=== PATIENT | female | born 1960 | race Caucasian/White ===

== ENCOUNTER 2016-05-31 05:22 | Emergency (ER) | payer BC ==
[~2016-05-31] VITALS: Ht 167.6 cm; Wt 99.8 kg
[~2016-05-31 05:22] MED LIST: CALCIUM200 MG PO; MELATONIN3 MG PO; METFORMIN500 MG PO; PHENTERMINE15 MG PO; SUDAFED30 MG PO; VITAMINS
[2016-05-31 05:25] VITALS: BP 120/73; TEMP 97.9
[2016-05-31 06:09] LABS: HEMATOCRIT 44.9 % (37.0-47.0); HEMOGLOBIN 14.5 g/dl (12.5-16.0); MEAN CELL VOLUME 91 fl (80.0-100.0); MEAN CORPUSCULAR HEMOGLOBIN 29 pg (27.0-31.0); MEAN CORPUSCULAR HGB CONC 32 g/dl (33.0-37.0); MEAN PLATELET VOLUME 9.4 fl (7.4-10.4); PLATELET COUNT 181 K/mm3 (130-400); RED BLOOD COUNT 4.94 M/mm3 (4.10-5.30); REDCELL DISTRIBUTION WIDTH-CV 14.6 % (11.5-14.5)
[2016-05-31 06:13] LABS: ADD PATHOLOGY DIFF REVIEW NO
[2016-05-31] MEDS ORDERED: CELEXA40 MG PO (06:24)
[2016-05-31] MEDS ORDERED: MULTIPLE VITAMI1 CAP PO (06:25)
[2016-05-31] MEDS ORDERED: CHROMIUM PICO200 MC2 PO (06:25)
[2016-05-31] MEDS ORDERED: BASE, PCCA POLY1 FLA (06:26)
[2016-05-31 06:47] LABS: ALBUMIN 3.9 gm/dL (3.5-5.0); BILIRUBIN,TOTAL 0.7 mg/dL (0.0-1.0); CALCIUM 7.9 mg/dL (8.4-10.2); CREATININE, serum 0.7 mg/dL (0.52-1.25); POTASSIUM 3.2 mmol/L (3.4-5.0); TOTAL PROTEIN 7.3 gm/dL (6.4-8.2)
[2016-05-31] MEDS ORDERED: LOMOTIL 0.025 M1 TAB PO (06:57)
[2016-05-31 08:13] VITALS: PULSE 86
[2016-05-31 09:21] LABS: BAND 18 % (0-10); EOSINOPHIL 3 % (0-4); NEUTROPHILS 64 % (42.0-75.2); TOTAL CELLS COUNTED 100
[2016-05-31 09:22] LABS: PLATELET ESTIMATE NORMAL (NORMAL)
== END 2016-05-31 08:14 | disposition home or self-care (01) ==
LOC: COL.ER 05:22
PROVIDERS: Emergency Medicine
DX: K52.9 Noninfective gastroenteritis and colitis, unspecified (principal); E11.9 Type 2 diabetes mellitus without complications; Z79.84 Long term (current) use of oral hypoglycemic drugs
CPT/HCPCS: J2765; J3010; J7030; J7120

== ENCOUNTER → 2016-12-15 | Outpatient (CLI) | payer BC ==
[~2016-12-15] MED LIST changes: +BASE, PCCA POLY1 FLA; +CELEXA40 MG PO; +CHROMIUM PICO200 MC2 PO; +LOMOTIL 0.025 M1 TAB PO; +MULTIPLE VITAMI1 CAP PO
== END ==
LOC: MC.RAD 16:00
DX: Z12.31 Encounter for screening mammogram for malignant neoplasm of breast (principal)

== ENCOUNTER → 2017-03-16 | Outpatient (CLI) | payer BC ==
[~2017-03-16] VITALS: Ht 168.9 cm; Wt 108.2 kg
[~2017-03-16] MED LIST changes: +CALCIUM CITRATE1 TA4 PO; -CALCIUM200 MG PO; +CELEXA 20MG20 MG/TAB PO; -CELEXA40 MG PO; +GLUCOPHAGE XR500 M1 PO; -METFORMIN500 MG PO; +MINOCIN 50M50 MG/CAP PO; +TROCHE BASE1 PEL SL
[2017-03-16 09:32] VITALS: BP 116/70; PULSE 60
== END ==
LOC: LIGHT 08:22
DX: E28.2 Polycystic ovarian syndrome (principal); E16.1 Other hypoglycemia; E66.9 Obesity, unspecified; Z68.37 Body mass index [BMI] 37.0-37.9, adult; Z71.3 Dietary counseling and surveillance; E78.5 Hyperlipidemia, unspecified
CPT/HCPCS: G0463

== ENCOUNTER → 2017-03-16 | Outpatient (CLI) | payer BC | LOC: BHSO 11:11 | DX: Z01.818 Encounter for other preprocedural examination (principal) ==

== ENCOUNTER → 2017-04-03 | Outpatient (CLI) | payer BC | LOC: LIGHT 14:26 | DX: Z01.89 Encounter for other specified special examinations (principal) ==

== ENCOUNTER → 2017-04-13 | Outpatient (CLI) | payer BC ==
[~2017-04-13] VITALS: Ht 168.9 cm; Wt 107.0 kg
[2017-04-13 16:24] VITALS: BP 110/60; PULSE 76
== END ==
LOC: LIGHT 11:39
DX: E28.2 Polycystic ovarian syndrome (principal); E16.1 Other hypoglycemia; E78.5 Hyperlipidemia, unspecified; Z68.37 Body mass index [BMI] 37.0-37.9, adult; Z71.3 Dietary counseling and surveillance
CPT/HCPCS: G0463

== ENCOUNTER → 2017-05-18 | Outpatient (CLI) | payer BC ==
[~2017-05-18] VITALS: Ht 168.9 cm; Wt 102.5 kg
[2017-05-18 16:14] VITALS: BP 100/60; PULSE 76
== END ==
LOC: LIGHT 09:52
DX: E28.2 Polycystic ovarian syndrome (principal); E16.1 Other hypoglycemia; E78.5 Hyperlipidemia, unspecified; Z68.35 Body mass index [BMI] 35.0-35.9, adult; Z71.3 Dietary counseling and surveillance
CPT/HCPCS: G0463

== ENCOUNTER → 2017-06-22 | Outpatient (CLI) | payer BC ==
[~2017-06-22] VITALS: Ht 168.9 cm; Wt 100.5 kg
[2017-06-22 16:17] VITALS: BP 104/58; PULSE 76
== END ==
LOC: LIGHT 09:35
DX: E28.2 Polycystic ovarian syndrome (principal); E16.1 Other hypoglycemia; E78.5 Hyperlipidemia, unspecified; Z68.35 Body mass index [BMI] 35.0-35.9, adult; Z71.3 Dietary counseling and surveillance
CPT/HCPCS: G0463

== ENCOUNTER → 2017-07-13 | Outpatient (CLI) | payer BC ==
[~2017-07-13] VITALS: Ht 168.9 cm; Wt 100.2 kg
[~2017-07-13] MED LIST changes: +FASTIN30 MG PO
[2017-07-13 17:05] VITALS: BP 100/80; PULSE 60
== END ==
LOC: LIGHT 14:17
DX: E28.2 Polycystic ovarian syndrome (principal); E16.1 Other hypoglycemia; E78.5 Hyperlipidemia, unspecified; Z68.35 Body mass index [BMI] 35.0-35.9, adult; Z71.3 Dietary counseling and surveillance
CPT/HCPCS: G0463

== ENCOUNTER → 2017-08-17 | Outpatient (CLI) | payer BC ==
[~2017-08-17] VITALS: Ht 168.9 cm; Wt 96.8 kg
[2017-08-17 10:58] VITALS: BP 96/66; PULSE 88
== END ==
LOC: LIGHT 10:42
DX: E28.2 Polycystic ovarian syndrome (principal); E16.1 Other hypoglycemia; E78.5 Hyperlipidemia, unspecified; Z68.33 Body mass index [BMI] 33.0-33.9, adult; Z71.3 Dietary counseling and surveillance
CPT/HCPCS: G0463

== ENCOUNTER → 2017-09-21 | Outpatient (CLI) | payer BC ==
[~2017-09-21] VITALS: Ht 168.9 cm; Wt 97.3 kg
== END ==
LOC: LIGHT 10:43
DX: E28.2 Polycystic ovarian syndrome (principal); E16.1 Other hypoglycemia; E78.5 Hyperlipidemia, unspecified
CPT/HCPCS: G0463

== ENCOUNTER → 2017-10-19 | Outpatient (CLI) | payer BC ==
[~2017-10-19] VITALS: Ht 168.9 cm; Wt 97.1 kg
[2017-10-19 11:15] VITALS: BP 104/70; PULSE 88
== END ==
LOC: LIGHT 10:58
DX: E28.2 Polycystic ovarian syndrome (principal); E16.1 Other hypoglycemia; E78.5 Hyperlipidemia, unspecified; Z68.34 Body mass index [BMI] 34.0-34.9, adult; Z71.3 Dietary counseling and surveillance
CPT/HCPCS: G0463

== ENCOUNTER → 2017-11-30 | Outpatient (CLI) | payer BC ==
[~2017-11-30] VITALS: Ht 168.9 cm; Wt 96.6 kg
[2017-11-30 16:21] VITALS: BP 110/70; PULSE 64
== END ==
LOC: LIGHT 14:12
DX: E28.2 Polycystic ovarian syndrome (principal); E16.8 Other specified disorders of pancreatic internal secretion; E78.5 Hyperlipidemia, unspecified; E66.9 Obesity, unspecified; Z68.33 Body mass index [BMI] 33.0-33.9, adult; Z71.3 Dietary counseling and surveillance
CPT/HCPCS: G0463

== ENCOUNTER → 2018-01-11 | Outpatient (CLI) | payer BC ==
[~2018-01-11] VITALS: Ht 168.9 cm; Wt 95.5 kg
[~2018-01-11] MED LIST changes: +ADIPEX-P37.5 MG PO; -FASTIN30 MG PO
[2018-01-11 14:45] VITALS: BP 106/74; PULSE 72
== END ==
LOC: LIGHT 11:01
DX: E28.2 Polycystic ovarian syndrome (principal); E16.9 Disorder of pancreatic internal secretion, unspecified; E78.5 Hyperlipidemia, unspecified; E66.9 Obesity, unspecified; Z68.33 Body mass index [BMI] 33.0-33.9, adult; Z71.3 Dietary counseling and surveillance
CPT/HCPCS: G0463

== ENCOUNTER → 2018-01-16 | Outpatient (CLI) | payer BC | LOC: MC.RAD 01-04 14:20 | DX: Z12.31 Encounter for screening mammogram for malignant neoplasm of breast (principal); Z98.890 Other specified postprocedural states ==

== ENCOUNTER → 2018-03-08 | Outpatient (CLI) | payer BC ==
[~2018-03-08] VITALS: Ht 168.9 cm; Wt 93.4 kg
[2018-03-08 16:48] VITALS: BP 106/80; PULSE 76
== END ==
LOC: LIGHT 11:17
DX: E28.2 Polycystic ovarian syndrome (principal); E16.9 Disorder of pancreatic internal secretion, unspecified; E78.5 Hyperlipidemia, unspecified; Z68.32 Body mass index [BMI] 32.0-32.9, adult; Z71.3 Dietary counseling and surveillance
CPT/HCPCS: G0463

== ENCOUNTER → 2018-05-10 | Outpatient (CLI) | payer BC ==
[~2018-05-10] VITALS: Ht 168.9 cm; Wt 95.5 kg
[2018-05-10 16:19] VITALS: BP 114/66; PULSE 88
== END ==
LOC: LIGHT 13:31
DX: E28.2 Polycystic ovarian syndrome (principal); E16.9 Disorder of pancreatic internal secretion, unspecified; E78.5 Hyperlipidemia, unspecified; Z68.33 Body mass index [BMI] 33.0-33.9, adult; Z71.3 Dietary counseling and surveillance
CPT/HCPCS: G0463

== ENCOUNTER → 2018-08-16 | Outpatient (CLI) | payer BC ==
[~2018-08-16] VITALS: Ht 168.9 cm; Wt 98.4 kg
[~2018-08-16] MED LIST changes: -ADIPEX-P37.5 MG PO; +FASTIN30 MG PO
[2018-08-16 13:57] VITALS: BP 126/66; PULSE 80
== END ==
LOC: LIGHT 06-14 10:59
DX: E16.9 Disorder of pancreatic internal secretion, unspecified (principal); E78.5 Hyperlipidemia, unspecified; Z68.34 Body mass index [BMI] 34.0-34.9, adult; Z71.3 Dietary counseling and surveillance
CPT/HCPCS: G0463

== ENCOUNTER → 2018-09-27 | Outpatient (CLI) | payer BC ==
[~2018-09-27] VITALS: Ht 168.9 cm; Wt 97.1 kg
[2018-09-27 14:07] VITALS: BP 110/70; PULSE 84
== END ==
LOC: LIGHT 13:59
DX: E28.2 Polycystic ovarian syndrome (principal); E16.9 Disorder of pancreatic internal secretion, unspecified; E78.5 Hyperlipidemia, unspecified; Z68.34 Body mass index [BMI] 34.0-34.9, adult; Z71.3 Dietary counseling and surveillance
CPT/HCPCS: G0463

== ENCOUNTER 2019-01-05 16:17 | Emergency (ER) | payer BC ==
[~2019-01-05] VITALS: Ht 170.2 cm; Wt 103.6 kg
[2019-01-05 16:41] VITALS: TEMP 98.6
[2019-01-05] MEDS ORDERED: NORCO 325 MG-51 TAB PO (18:23)
[2019-01-05 18:46] VITALS: BP 101/55; PULSE 75
== END 2019-01-05 18:46 | disposition home or self-care (01) ==
LOC: COL.ER 16:17
DX: S93.602A Unspecified sprain of left foot, initial encounter (principal); F41.9 Anxiety disorder, unspecified; X50.1XXA Overexertion from prolonged static or awkward postures, initial encounter; Y92.009 Unspecified place in unspecified non-institutional (private) residence as the place of occurrence of the external cause

== ENCOUNTER → 2019-01-24 | Outpatient (CLI) | payer BC ==
[~2019-01-24] VITALS: Ht 168.9 cm; Wt 98.4 kg
[~2019-01-24] MED LIST changes: +NORCO 325 MG-51 TAB PO
[2019-01-24 16:32] VITALS: BP 120/76; PULSE 80
== END ==
LOC: LIGHT 11-08 11:01
DX: E28.2 Polycystic ovarian syndrome (principal); E16.9 Disorder of pancreatic internal secretion, unspecified; E78.5 Hyperlipidemia, unspecified; Z68.34 Body mass index [BMI] 34.0-34.9, adult; Z71.3 Dietary counseling and surveillance
CPT/HCPCS: G0463

== ENCOUNTER → 2019-11-07 | Outpatient (CLI) | payer BC | LOC: MC.RAD 14:45 | DX: Z12.31 Encounter for screening mammogram for malignant neoplasm of breast (principal) ==

== ENCOUNTER → 2021-07-05 | Outpatient (CLI) | payer BC | LOC: MC.RAD 10:48 | DX: Z12.31 Encounter for screening mammogram for malignant neoplasm of breast (principal) ==

== ENCOUNTER → 2023-10-27 | Outpatient (CLI) | payer BC | LOC: MC.RAD 11:03 | DX: Z12.31 Encounter for screening mammogram for malignant neoplasm of breast (principal); R92.1 Mammographic calcification found on diagnostic imaging of breast ==

== ENCOUNTER → 2023-11-02 | Outpatient (CLI) | payer BC | LOC: MC.RAD 09:54 | DX: R92.0 Mammographic microcalcification found on diagnostic imaging of breast (principal); R92.8 Other abnormal and inconclusive findings on diagnostic imaging of breast ==